=== PATIENT | male | born 1960 | race African-American/Black ===

== ENCOUNTER 2017-01-11 05:56 | Inpatient (IN) | payer OTHER ==
[2017-01-04 10:50] LABS: BASOPHILS 0.8 %; BASOPHILS ABSOLUTE 0.03 10/3/uL (0.0-0.16); EOSINOPHILS 5.4 %; HEMATOCRIT 41.9 % (40.0-51.0); HEMOGLOBIN 14.2 g/dL (13.6-17.8); LYMPHOCYTES 22.2 %; LYMPHOCYTES ABSOLUTE 0.82 10/3/uL (0.67-4.30); MEAN CORPUS HGB CONC 33.9 g/dL (32.0-36.0); MEAN CORPUSCULAR HEMOGLOB 29.5 pg (26.0-34.0); MEAN CORPUSCULAR VOLUME 87.1 fL (80-100); MONOCYTES 18.4 %; MONOCYTES ABSOLUTE 0.68 10/3/uL (0.21-1.20); NEUTROPHILS 53.2 %; NEUTROPHILS ABSOLUTE 1.96 10/3/uL (2.02-8.40); PLATELET COUNT 211 10/3/uL (150-400); RBC DISTRIBUTION WIDTH 14.7 % (12.0-16.0); RED CELL COUNT 4.81 10/6/uL (4.7-6.1); WHITE BLOOD CELLS 3.7 10/3/uL (4.5-10.5)
[2017-01-04 10:56] LABS: PARTIAL THROMBO TIME 33.9 SEC (22.5-37.2)
[2017-01-04 11:04] LABS: BUN (BLOOD UREA NITROGEN) 14 MG/DL (6-23); CALCIUM, SERUM 8.6 MG/DL (8.5-10.4); CHLORIDE, SERUM 104 MMOL/L (96-112); CO2 (CARBON DIOXIDE) 28 MMOL/L (24-34); CREATININE 1.26 MG/DL (0.70-1.30); GFR AFRICAN AMERICAN 73 ML/MIN (>=60); GFR NON AFRICAN AMERICAN 63 ML/MIN (>=60); GLUCOSE, SERUM 88 MG/DL (60-99); POTASSIUM, SERUM 4.1 MMOL/L (3.5-5.3); SODIUM, SERUM 140 MMOL/L (135-148)
[2017-01-04 13:26] LABS: ASCORBIC ACID (UR NOT ORDER) NEG (NEG); BILIRUBIN, URINE NEGATIVE (NEG); KETONE, URINE NEGATIVE (NEG); LEUKOCYTE ESTERASE(NOT OR NEG (NEG); WBC (NOT ORDERED) (RFLEX) 1 (0-5)
--- NOTE | ~2017-01-11 | OP ---
Record Of Operation [facility] [address] [place]. [address] NAME: LUZ OBRIEN : 60 STATUS : ADM IN PAT#: [id number] AGE: 56 ADM/REG DATE : 01/11/17 MR#: [id number] REPORT SERV DATE: 01/11/17 DICTATED BY: KRAIG MCGOWAN DATE: 01/11/17 REPORT STATUS : Draft TRANSCRIBED BY: MODL DATE: 01/11/17 DATE OF PROCEDURE: 01/11/2017 PREOPERATIVE DIAGNOSIS: Adenocarcinoma of the prostate, clinical stage T1c, Gualberto score 3+4=7, maximum PSA 5.1. POSTOPERATIVE DIAGNOSIS: Adenocarcinoma of the prostate, clinical stage T1c, Pullman score 3+4=7, maximum PSA 5.1. PROCEDURE: Laparoscopic robot-assisted radical prostatectomy. SURGEON: Kraig Mcgowan M.D. CORE WORKER: Enriqueta Dobson. ANESTHESIA: General and Local. BLOOD LOSS: Estimated at 125 mL. FLUID REPLACEMENT: 3 L of crystalloid. DRAINS: 15 mm Estuardo drain in prevesical space, an 18-Lao Mcgowan catheter per urethra, and 15 mL of sterile water inflated the catheter balloon. INDICATION: 56-year-old male, recently diagnosed with adenocarcinoma of the prostate. TECHNIQUE: The patient was identified, brought to the operating room, administered general anesthetic agent by the anesthesia service and intubated. He was positioned in dorsal lithotomy position. The abdomen was previously clipped. The entire abdomen, penis, groin, scrotum, and perineum were prepped and draped in the usual sterile fashion. A 16-Lao Mcgowan catheter was passed into the bladder and left for drainage. All laparoscopic port sites first infiltrated with 0.5% Marcaine plain. A 3 cm incision was made above the umbilicus and carried down through subcutaneous tissue exposing the rectus fascia. Holding sutures were placed in the rectus fascia. It was elevated and incised transversely with an 11-blade scalpel. The underlying peritoneum was identified and opened sharply. A balloon trocar was placed in the peritoneal space and pneumoperitoneum was created by insufflating carbon dioxide. The abdominal pressure was raised to 15 mmHg and held there through the remainder of the case until otherwise specified. Three robot arm ports and two medical assistant ob gyn ports were placed under direct laparoscopic vision. Once all ports were in position, da Vj robot was brought to the table and mated to the ports. I took down some adhesions between the cecum and the right anterior abdominal wall as well as the sigmoid colon and left pelvic sidewall. I then opened the cul-de-sac and exposed the seminal structures. The left and right vasa deferentia were dissected out and clipped proximally transected distally. Left and right seminal vesicles were dissected out. Record Of Operation [facility] [address] [place]. [address] NAME: LUZ OBRIEN : 60 STATUS : ADM IN PAT#: [id number] AGE: 56 ADM/REG DATE : 01/11/17 MR#: [id number] REPORT SERV DATE: 01/11/17 DICTATED BY: KRAIG MCGOWAN DATE: 01/11/17 REPORT STATUS : Draft TRANSCRIBED BY: JOSE RAMON DATE: 01/11/17 Denonvilliers fascia was opened sharply and the rectum swept off the undersurface prostate all the way out to the apex. I oversewed the part of the posterior pedicle with 3-0 Monocryl bilaterally. I began to take the neurovascular bundles off the undersurface of the prostate all the way out to the apex. I then divided median umbilical ligaments and urachus near the umbilicus. I swept the bladder off the anterior abdominal wall and symphysis pubis. The peritoneum was opened just lateral to the median umbilical ligaments on each side all the way to the vasa deferentia bilaterally. Fat overlying the prostate gland was taken off the prostate with sharp dissection. I pierced the endopelvic fascia at the prostatovesical junction and opened it distally out through the puboprostatic ligaments bilaterally. Attachments of striated sphincter were taken off the apex of the prostate sharply. The dorsal venous complex was isolated and secured with laparoscopic ROBBIN stapling device. It was oversewn with 3-0 PDS. I then mobilized neurovascular bundles off the apices of prostate bilaterally and carried the dissection back to the posterior pedicles. I switched to a 30-degree down lens and developed a plane with the bladder neck the prostate. I opened the anterior bladder neck elevated the Mcgowan catheter and came to the posterior bladder neck. I dissected down to expose previously to dissected seminal structures. The posterior pedicles were then secured with 3-0 PDS on locking clips and divided. The prostate was now mobile all the way out to the apex. Last attachments of striated sphincter were taken off the apex of the prostate. The urethra was divided sharply and the posterior striated sphincter was divided sharply. The specimen was inspected, appears intact, placed into a specimen retrieval bag, and held for later retrieval. I lowered the abdominal pressure down to 7 mmHg, held it there for 5 minutes. The pelvis was irrigated copiously. I had to over sew part of the left neurovascular bundle for arterial bleeding. I did this with 3-0 Monocryl. Once fastidious hemostasis achieved very re-expanded the abdomen to 15 mmHg. I did posterior reconstruction in two layers with 3 V- Loc and modified Van Velthoven vesicourethral anastomosis with 3-0 V-Loc. When the anastomosis was completed, I inserted a new 18-Lao Mcgowan catheter. 15 mL of sterile water inflating catheter balloon. The anastomosis was tested by filling the bladder with 240 mL of saline. It holds without extravasation. The bladder was then drained. The instrument was taken out of the robot arm port and a 15 mm Estuardo drain was placed through that port and left in the prevesical space. It was later sutured to skin with 2-0 Prolene. I undocked the da Vj robot and transferred the string of the specimen out through the umbilical port. The medical assistant ob gyn 12 mm port was removed and the fascia there was closed with a Perfecto-Marcell endoscopic closure system. Under low pressure, all ports were removed. No port site bleeding was noted. I extended my transverse incision at the fascia by 1 cm in each direction. I delivered the specimen out through the wound. I closed the fascia with [id number] Vicryl sutures. Record Of Operation [facility] [address] [place]. [address] NAME: LUZ OBRIEN : 60 STATUS : ADM IN PAT#: [id number] AGE: 56 ADM/REG DATE : 01/11/17 MR#: [id number] REPORT SERV DATE: 01/11/17 DICTATED BY: KRAIG MCGOWAN DATE: 01/11/17 REPORT STATUS : Draft TRANSCRIBED BY: MODL DATE: 01/11/17 The subcutaneous tissues of all ports were irrigated copiously. The subcutaneous tissues of the large port were closed with 3-0 Vicryl. The skin of all ports closed with 4-0 Monocryl. Dressings were applied. The catheter was secured. The patient was awakened and taken to the recovery unit in stable and satisfactory condition. KIKO/JOSE RAMON Kraig Mcgowan M.D. / [id number] CC: Kraig Mcgowan M.D.
--- NOTE | ~2017-01-11 | DS ---
Discharge Summary [facility] [address] [place]. [address] NAME: LUZ OBRIEN : 60 STATUS : DIS IN PAT#: [id number] AGE: 56 ADM/REG DATE : 01/11/17 MR#: [id number] REPORT SERV DATE: 01/22/17 DICTATED BY: KRAIG MCGOWAN DATE: 01/21/17 REPORT STATUS : Draft TRANSCRIBED BY: JOSE RAMON DATE: 01/21/17 Data Collection from hospitalization DISCHARGE DIAGNOSES: 1. Adenocarcinoma of the prostate, clinical stage T1c, Gualberto score 3+4 equals 7, maximum PSA 5.1. 2. Hypertension. 3. Chronic obstructive pulmonary disease. 4. Depression and anxiety. 5. Gastroesophageal reflux disease. CONSULTATION: None. PROCEDURES PERFORMED: Laparoscopic robot assisted radical prostatectomy, 01/11/2017. PATHOLOGY: Prostate and seminal vesicles radical robotic prostatectomy, adenocarcinoma. MEDICATIONS: Wellbutrin 100 mg twice daily, Desyrel 100 mg at bedtime, diltiazem ER 180 mg every morning, Neurontin 600 mg daily, hydrochlorothiazide 25 mg every morning, Prinivil 40 mg every morning, Prilosec 20 mg twice daily, Combivent one puff twice daily as needed, Atarax 50 mg twice daily as needed. Also, continue with Levaquin and hydrocodone as directed. CONDITION AT DISCHARGE: Upon discharge, he did appear to be doing well and had no complaints. DISPOSITION: He had been discharged home to continue a regular diet with activity as discussed. He was to follow up with me in the office on 01/19/2017 and follow up with his primary care physician as needed. HOSPITAL COURSE: This 56-year-old male was recently diagnosed with adenocarcinoma of the prostate. He had an elevated PSA of 5.1, which led to a biopsy. Biopsy had revealed Saint Johns score of 3+ 4 equals 7, from the left apex. Different treatment options regarding management of the prostate cancer were proposed to the patient, and he decided to proceed with laparoscopic robot assisted radical prostatectomy. He was admitted for this and further treatment. Upon admission to the hospital, he had been taken to the operating room, where he did undergo the above prostatectomy. He did tolerate this well and was transferred to the recovery room. On postop day 1, he was afebrile and his vital signs were stable. He did appear to be doing well postoperatively. He had been noted to have a postop fever and was encouraged to ambulate and had been placed on breathing treatments. On postop day #2, he did still have the postop fever without unidentifiable source and he was still being observed. He had been placed empirically on Levaquin. He was felt to be doing well otherwise. He did continue to do well and on postop day #3, he had been afebrile for 24 hours and his WBCs were at 7000. Due to his stable condition, he was then discharged with the above instructions. Information collected by: Pedro Ramirez Discharge Summary [address] [address] NAME: LUZ OBRIEN : 60 STATUS : DIS IN PAT#: [id number] AGE: 56 ADM/REG DATE : 01/11/17 MR#: [id number] REPORT SERV DATE: 01/22/17 DICTATED BY: KRAIG MCGOWAN DATE: 01/21/17 REPORT STATUS : Draft TRANSCRIBED BY: JOSE RAMON DATE: 01/21/17 I submit the above information as my discharge summary. ITZEL/JOSE RAMON Kraig Mcgowan M.D. / [id number] CC: Stefany Dennis
--- NOTE | ~2017-01-11 | PREOPHP ---
PreOp History and Physical [facility] [address] [place]. [address] NAME: LUZ OBRIEN : 60 STATUS : PRE IN PAT#: [id number] AGE: 56 ADM/REG DATE : MR#: [id number] REPORT SERV DATE: 01/08/17 DICTATED BY: KRAIG MCGOWAN DATE: 01/08/17 REPORT STATUS : Draft TRANSCRIBED BY: MODL DATE: 01/08/17 CHIEF COMPLAINT: Adenocarcinoma of the prostate, clinical stage T1c, Lottie score 3+4=7, maximum PSA 5.1. HISTORY OF PRESENT ILLNESS: Mr. Obrien is a 56-year-old male, recently diagnosed with adenocarcinoma of the prostate. An elevated PSA of 5.1 led to the biopsy. Biopsy revealed Lottie score 3+4=7 from the left apex. Different treatment options regarding management of prostate cancer were proposed to the patient. He has decided to proceed with laparoscopic robot-assisted radical prostatectomy. He will be admitted after that procedure today. The patient reports obstructing urinary symptoms: Weak urinary stream, postvoid dribbling, and urinary urgency. He also has erectile dysfunction. Viagra was initially successful, but it is no longer of any help or benefit. PAST MEDICAL HISTORY: Hypertension, COPD, depression, anxiety, gastroesophageal reflux disease. PAST SURGICAL HISTORY: None. MEDICATIONS: Trazodone, bupropion, hydroxyzine, hydrochlorothiazide, diltiazem, lisinopril, omeprazole. ALLERGIES: PENICILLIN, IODINE, AND TRAMADOL. SOCIAL HISTORY: Tobacco user, he smokes half pack a day and has for over 30 years. Reports rare alcohol use, and no drug use. FAMILY HISTORY: Negative for prostate cancer. REVIEW OF SYSTEMS: Positive for gastroesophageal reflux disease, depression, some memory loss, shortness of breath, and ringing in the ears. PHYSICAL EXAMINATION: GENERAL: Shows a well-developed, well-nourished, male, in no acute distress. He is awake, alert, oriented x3. EYES: Sclerae anicteric. NECK: Supple. LUNGS: Clear. HEART: Has regular rate and rhythm. ABDOMEN: Soft, nontender. No palpable masses. : The penis is normal. Testes are descended. Nontender. No inguinal hernias. Prostate is average sized. No nodules. EXTREMITIES: Lower extremities, no deformities. IMPRESSION: Adenocarcinoma of the prostate clinical stage T1c, Gualberto score 3+4=7 from the PreOp History and Physical [address] [address] NAME: LUZ OBRIEN : 60 STATUS : PRE IN PAT#: [id number] AGE: 56 ADM/REG DATE : MR#: [id number] REPORT SERV DATE: 01/08/17 DICTATED BY: KRAIG MCGOWAN DATE: 01/08/17 REPORT STATUS : Draft TRANSCRIBED BY: MODCecy DATE: 01/08/17 left apex, with maximum PSA of 5.1. PLAN: Laparoscopic robot-assisted radical prostatectomy. Potential complications of bleeding, infection, urinary incontinence, bladder neck obstruction, loss of ejaculate, worsened erectile dysfunction, and injury to adjacent structures such as bladder, ureters, rectum, colon, intestine, nerves, as well as bowel obstruction and complications have all been explained to the patient. He both manually and verbally consents to proceed. PF/JOSE RAMON Kraig Mcgowan M.D. / [id number] CC: Stefany Dennis Zenaida S
[~2017-01-11 05:56] MED LIST: ATARAX50B PO; COMBIVENT RESPIM4 GM INH; DILTIAZEM 180 MG; HYDROCHLOROT25 MG PO; LISINOPRIL40 MG PO; NEUR600 PO; PRILO PO; TRAZ100 PO; WELL100 PO; WELL75 PO
[2017-01-12 06:27] LABS: HEMATOCRIT 38.3 % (40.0-51.0)
[2017-01-12 06:45] LABS: CALCIUM, SERUM 8.5 MG/DL (8.5-10.4); CHLORIDE, SERUM 105 MMOL/L (96-112); CO2 (CARBON DIOXIDE) 26 MMOL/L (24-34); CREATININE 1.29 MG/DL (0.70-1.30); GFR AFRICAN AMERICAN 71 ML/MIN (>=60); GFR NON AFRICAN AMERICAN 62 ML/MIN (>=60); POTASSIUM, SERUM 4.2 MMOL/L (3.5-5.3); SODIUM, SERUM 140 MMOL/L (135-148)
[2017-01-12 06:46] LABS: BUN (BLOOD UREA NITROGEN) 8 MG/DL (6-23); GLUCOSE, SERUM 138 MG/DL (60-99)
[2017-01-13 05:34] LABS: BASOPHILS 0.3 %; BASOPHILS ABSOLUTE 0.02 10/3/uL (0.0-0.16); EOSINOPHILS 0.5 %; EOSINOPHILS ABSOLUTE 0.04 10/3/uL (0.0-0.53); HEMATOCRIT 42.1 % (40.0-51.0); HEMOGLOBIN 14.3 g/dL (13.6-17.8); IMMATURE GRANULOCYTES 0.3 %; IMMATURE GRANULOCYTES ABSOLUTE 0.02 10/3/uL (0.0-0.11); LYMPHOCYTES 10.5 %; LYMPHOCYTES ABSOLUTE 0.77 10/3/uL (0.67-4.30); MEAN CORPUSCULAR HEMOGLOB 29.4 pg (26.0-34.0); MEAN CORPUSCULAR VOLUME 86.6 fL (80-100); MEAN PLATELET VOLUME 10.1 fL (9.2-13.0); MONOCYTES 11.4 %; MONOCYTES ABSOLUTE 0.84 10/3/uL (0.21-1.20); NEUTROPHILS ABSOLUTE 5.66 10/3/uL (2.02-8.40); PLATELET COUNT 233 10/3/uL (150-400); RBC DISTRIBUTION WIDTH 14.5 % (12.0-16.0); RED CELL COUNT 4.86 10/6/uL (4.7-6.1)
[2017-01-13 05:38] LABS: MANUAL DIFF NO %; WHITE BLOOD CELLS 7.4 10/3/uL (4.5-10.5)
[2017-01-14 05:03] LABS: BASOPHILS 0.4 %; BASOPHILS ABSOLUTE 0.03 10/3/uL (0.0-0.16); EOSINOPHILS 1.9 %; EOSINOPHILS ABSOLUTE 0.14 10/3/uL (0.0-0.53); HEMATOCRIT 45.8 % (40.0-51.0); HEMOGLOBIN 15.6 g/dL (13.6-17.8); IMMATURE GRANULOCYTES 0.6 %; IMMATURE GRANULOCYTES ABSOLUTE 0.04 10/3/uL (0.0-0.11); LYMPHOCYTES 22.2 %; MEAN CORPUS HGB CONC 34.1 g/dL (32.0-36.0); MEAN CORPUSCULAR HEMOGLOB 29.6 pg (26.0-34.0); MEAN CORPUSCULAR VOLUME 86.9 fL (80-100); MEAN PLATELET VOLUME 10.1 fL (9.2-13.0); MONOCYTES 13.9 %; NEUTROPHILS ABSOLUTE 4.41 10/3/uL (2.02-8.40); PLATELET COUNT 246 10/3/uL (150-400); RBC DISTRIBUTION WIDTH 14.5 % (12.0-16.0); RED CELL COUNT 5.27 10/6/uL (4.7-6.1); WHITE BLOOD CELLS 7.2 10/3/uL (4.5-10.5)
[2017-01-14 05:11] LABS: MANUAL DIFF NO %
[2017-01-14 05:22] LABS: CHLORIDE, SERUM 98 MMOL/L (96-112); CO2 (CARBON DIOXIDE) 26 MMOL/L (24-34); CREATININE 1.27 MG/DL (0.70-1.30); GFR AFRICAN AMERICAN 73 ML/MIN (>=60); GFR NON AFRICAN AMERICAN 63 ML/MIN (>=60); GLUCOSE, SERUM 137 MG/DL (60-99); POTASSIUM, SERUM 3.7 MMOL/L (3.5-5.3); SODIUM, SERUM 137 MMOL/L (135-148)
[2017-01-14 05:23] LABS: BUN (BLOOD UREA NITROGEN) 15 MG/DL (6-23)
[2017-01-14] MEDS ORDERED: LEVAQUIN750 MG PO (08:15)
[2017-01-14] MEDS ORDERED: XODOL 7.5-3001 EACH PO (08:16)
== END 2017-01-14 11:50 | disposition home or self-care (01) | DRG 708 ==
LOC: SDC/OF 05:56 → PACU 11:22 → 4SO 13:23
PROVIDERS: Urology
PROC: 0VTQ4ZZ Resection of Bilateral Vas Deferens, Percutaneous Endoscopic Approach (ICD-10-PCS; principal; 2017-01-11 06:30)
PROC: 8E0W4CZ Robotic Assisted Procedure of Trunk Region, Percutaneous Endoscopic Approach (ICD-10-PCS; principal; 2017-01-11 06:30)
PROC: 0VT04ZZ Resection of Prostate, Percutaneous Endoscopic Approach (ICD-10-PCS; principal; 2017-01-11 06:30)
PROC: 0VT34ZZ Resection of Bilateral Seminal Vesicles, Percutaneous Endoscopic Approach (ICD-10-PCS; principal; 2017-01-11 06:30)
DX: C61 Malignant neoplasm of prostate (principal); I10 Essential (primary) hypertension; J44.9 Chronic obstructive pulmonary disease, unspecified; F32.9 Major depressive disorder, single episode, unspecified; F41.9 Anxiety disorder, unspecified; K21.9 Gastro-esophageal reflux disease without esophagitis; R39.12 Poor urinary stream; N39.43 Post-void dribbling; R39.15 Urgency of urination; N52.9 Male erectile dysfunction, unspecified; Z88.0 Allergy status to penicillin; Z88.8 Allergy status to other drugs, medicaments and biological substances; F17.210 Nicotine dependence, cigarettes, uncomplicated
CPT/HCPCS: 80048; 81001; 83735; 85014; 85018; 85025; 85610; 85730; 88309; 93005; 94640; A9270-GY; J0690; J1580; J2250; J2270; J2405; J2550; J2710; J3010; J3370